=== PATIENT | male | born 1975 ===

== ENCOUNTER 2017-01-11 15:32 | Observation (INO) | payer OTHER ==
[2017-01-11 15:33] VITALS: BMI 38.6
[2017-01-11] MEDS ORDERED: DiphenhydrAMINE 50 mg/ml Inj IVP STA (16:04)
[2017-01-11] MEDS ORDERED: Sodium Chloride 0.9% 1,000 ML IV STA (16:04)
--- NOTE | 2017-01-11 16:16 | ED PDOC ---
Arrival/HPI <Rock Huston - Last Filed: 01/12/17 00:32> - General Historian: Patient <Nina Brooks PA-C - Last Filed: 01/12/17 01:46> - General Chief Complaint: Abnormal Skin Integrity Time Seen by Provider: 01/11/17 15:54 - History of Present Illness Narrative History of Present Illness (Text): 01/11/17 16:12 Patient with no past medical history, reports 1 day of feeling generalized fatigue with body aches started a few hours prior to arrival. Patient also reports of an itchy red rash described as a burning sensation to the posterior aspect of his neck and back which she noticed one hour prior to arrival. Patient states that he does not know the cause of the rash, denies any new medications, new food intake, changing his soaps or lotions. Otherwise: (+) cough today, (+) mild headache, (-) sore throat, (-) URI symptoms, (-) SOB, (-) chest pain, (-) N/V/D, (-) abdominal pain, (-) flank pain, (-) urinary symptoms , (-) recent travel, (-) sick contacts. Patient adds that one month ago he had flulike symptoms, was seen and evaluated by a clinician, who prescribed him cough medication and an inhaler, states they took the medications for 1 week and felt better afterwards and since then has been well. (Nina Brooks PA-C) Past Medical History - Provider Review Nursing Documentation Reviewed: Yes - Past History Past History: No Previous - Infectious Disease Hx of Infectious Diseases: None - Tetanus Immunization Tetanus Immunization: Unknown - Past Medical History Past Medical History: No Previous - Cardiac Hx Cardiac Disorders: No Hx Angina: No Hx Cardiac Arrhythmia: No Hx Circulatory Problems: No Hx Congestive Heart Failure: No Hx Hypertension: No - Pulmonary Hx Sleep Apnea: Yes (2013 cpap does no use now) - Neurological Hx Neurological Disorder: No - HEENT Hx HEENT Disorder: No - Renal Hx Renal Disorder: No - Endocrine/Metabolic Hx Diabetes Mellitus Type 1: No Hx Diabetes Mellitus Type 2: No - Hematological/Oncological Hx Blood Disorders: No - Integumentary Hx Dermatological Disorder: No - Musculoskeletal/Rheumatological Hx Musculoskeletal Disorders: No Hx Falls: No - Gastrointestinal Hx Gastrointestinal Disorders: No - Genitourinary/Gynecological Hx Genitourinary Disorders: No - Psychiatric Hx Psychophysiologic Disorder: No Hx Depression: No Hx Emotional Abuse: No Hx Physical Abuse: No Hx Substance Use: No - Past Surgical History Past Surgical History: No Previous - Anesthesia Hx Anesthesia: No - Suicidal Assessment Feels Threatened In Home Enviroment: No <Nina Brooks PA-C - Last Filed: 01/12/17 01:46> Family/Social History - Physician Review Nursing Documentation Reviewed: Yes Family/Social History: No Known Family HX Smoking Status: Never Smoked Hx Alcohol Use: No Hx Substance Use: No Hx Substance Use Treatment: No <Nina Brooks PA-C - Last Filed: 01/12/17 01:46> Allergies/Home Meds <Rock Huston - Last Filed: 01/12/17 00:32> <Nina Brooks PA-C - Last Filed: 01/12/17 01:46> Allergies/Adverse Reactions: Allergies No Known Allergies Allergy (Verified 04/14/12 15:09) Home Medications: Home Meds Medication Instructions Recorded Confirmed Valsartan/Hydrochlorothiazide 1 each PO DAILY 01/11/17 01/11/17 [Diovan Hct 160-12.5 mg Tab] Review of Systems - Review of Systems Constitutional: Normal, Fatigue. absent: Weight Change, Fevers, Night Sweats ENT: Normal. absent: Hearing Changes, Tinnitus, TMJ Pain, Voice Changes, Sore Throat Respiratory: Normal. absent: SOB, Cough Cardiovascular: Normal. absent: Chest Pain, Palpitations Gastrointestinal: Normal. absent: Abdominal Pain, Stool Changes, Nausea, Vomiting Musculoskeletal: Normal, Myalgias (bodyaches). absent: Arthralgias, Back Pain, Neck Pain Skin: Normal, Rash (to the back). absent: Pruritis, Skin Lesions <Nina Brooks PA-C - Last Filed: 01/12/17 01:46> Physical Exam <Rock Huston - Last Filed: 01/12/17 00:32> <Nina Brooks PA-C - Last Filed: 01/12/17 01:46> - Physical Exam Narrative Physical Exam (Text): 01/11/17 16:17 GENERAL APPEARANCE: Patient is awake, alert, oriented x 3, in mild distress. SKIN: Warm, dry; (-) cyanosis, (+) non-tender erythematous papular rash to the neck, back, chest, abdomen and upper arms. (-) Decubitus Ulcer EYES: (-) conjunctival pallor, (-) scleral icterus, (-) conjunctival hemorrhage. ENMT: Mucous membranes dry. TMs: (-) erythema. Airway patent: (-) stridor. Pharynx: (-) erythema, (-) exudate. (-) Lesions in the oral mucosa. NECK: (-) tenderness, (-) stiffness, (-) meningismus, (-) lymphadenopathy. CHEST AND RESPIRATORY: (-) accessory muscle use. Lungs: (-) rales, (-) rhonchi, (-) wheezes, (-) rub; breath sounds equal bilaterally. HEART AND CARDIOVASCULAR: (-) irregularity; (-) murmur, (-) gallop, (-) rub. ABDOMEN AND GI: Soft; (-) tenderness, (-) guarding; (-) organomegaly; (-) mass ; (-) CVA tenderness. EXTREMITIES: (-) deformity; (-) cellulitis, (-) lymphangitis; (-) subungual hemorrhage; (-) edema. NEURO AND PSYCH: Mental status as above; (-) focal findings. 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 Plan: -- Labs -- IV fluids -- Urinalysis -- Rapid flu -- CXR -- Benadryl / Toradol -- Reassess and disposition 01/11/17 17:40 CXR : NAD, as read by PA (Todd KAUR,Nina Avalos) - RAD Interpretation Narrative RAD Interpretations (Text): EXAM: CT Neck With Intravenous Contrast COMPARISON: No relevant prior studies available. FINDINGS: Nasopharynx: Unremarkable. Oropharynx: Unremarkable. No significant tonsillar enlargement. No peritonsillar abscess. Hypopharynx: Unremarkable. Larynx: Unremarkable. Normal epiglottis. Trachea: Unremarkable. Retropharyngeal space: Unremarkable. Submandibular/parotid glands: Unremarkable. Glands are normal in size. Thyroid: Unremarkable. No enlarged or calcified nodules. Bones/joints: No acute fracture. Soft tissues: Unremarkable. Vasculature: No acute findings. Lymph nodes: Borderline enlarged lymph nodes. Lung apices: Unremarkable as visualized. IMPRESSION: No acute findings. EXAM: CT Abdomen and Pelvis With Intravenous Contrast FINDINGS: Lower thorax: No acute findings. ABDOMEN: Liver: The liver is heterogenous in appearance. Suggestive of fatty infiltration. Gallbladder and bile ducts: Unremarkable. No calcified stones. No ductal dilation. Pancreas: Unremarkable. No mass. No ductal dilation. Spleen: Unremarkable. No splenomegaly. Adrenals: Unremarkable. No mass. Kidneys and ureters: Unremarkable. No solid mass. No hydronephrosis. Stomach and bowel: Bowel evaluation is limited due to lack of distention. No mucosal thickening. Appendix: No findings to suggest acute appendicitis. PELVIS: Bladder: Unremarkable. No mass. Reproductive: Unremarkable as visualized. ABDOMEN and PELVIS: Intraperitoneal space: Unremarkable. No free air. No significant fluid collection. Bones/joints: No acute fracture. No dislocation. Soft tissues: Unremarkable. Vasculature: Unremarkable. No abdominal aortic aneurysm. Lymph nodes: Unremarkable. No enlarged lymph nodes. IMPRESSION: No acute findings. (Rock Huston) Radiology Orders: 01/11/17 16:04 CHEST TWO VIEWS (PA/LAT) [RAD] Stat - Medication Orders Current Medication Orders: Sodium Chloride (Sodium Chloride 0.9%) 1,000 mls @ 200 mls/hr IV .Q5H SERAFIN Last Admin: 01/11/17 21:37 Dose: 200 mls/hr Discontinued Medications Acetaminophen (Tylenol 325mg Tab) 975 mg PO STAT STA Stop: 01/11/17 21:06 Last Admin: 01/11/17 21:32 Dose: 975 mg Diphenhydramine HCl (Benadryl) 25 mg IVP STAT STA Stop: 01/11/17 16:05 Last Admin: 01/11/17 16:54 Dose: 25 mg Sodium Chloride (Sodium Chloride 0.9%) 1,000 mls @ 1,000 mls/hr IV .Q1H STA Stop: 01/11/17 17:03 Last Admin: 01/11/17 16:53 Dose: 1,000 mls/hr Iohexol (Omnipaque 350 150 Ml) Confirm Administered Dose 150 ml .ROUTE .STK-MED ONE Stop: 01/11/17 22:48 Ketorolac Tromethamine (Toradol) 30 mg IVP STAT STA Stop: 01/11/17 16:05 Last Admin: 01/11/17 16:54 Dose: 30 mg Methylprednisolone (Solu-Medrol) 125 mg IV STAT STA Stop: 01/11/17 18:45 ED OBSERVATION <Rock Huston - Last Filed: 01/12/17 00:32> Date of observation admission: 01/11/17 Time of observation admission: 16:05 <Nina Brooks PA-C - Last Filed: 01/12/17 01:46> - Observation admission statement Patient is being placed in observation because:: To monitor patient's symptoms and response to treatment. (Nina Brooks PA-C) - Goals of Observation Goals of observation are:: To observe and re-asses the the patient's symptoms. (Nina Brooks PA-C) - Progress Note Progress Note: 01/12/17 21:30 On reevaluation, CBC is normal, CMP : LFTs are mildly elevated. Rapid flu (-). Lipase ordered. Patient developed a fever of 101 here in the emergency room, given Tylenol by mouth. A second liter of normal saline ordered for IV hydration. Patient seen and evaluated by Dr. Huston, plan will be to order CT neck and A/P to r/o any acute pathology. 22:30 VS: T 98 P 64 BP 134/77 98%RA. 01/12/17 23:30 CT results of the neck and abdomen/pelvis are within normal limits. Lipase normal. Blood cultures sent. UA still pending. On reevaluation, patient remains awake, alert, oriented 3, in no acute distress. Patient appears well not toxic appearing. VS normal, patient is afebrile. On exam, neck is supple, mucous membranes moist, lungs are clear to auscultation, cardiac regular rate and rhythm, abdomen still soft with no tenderness. 01/12/17 01:00 Case d/w Dr. Tejeda, agrees with current plan of care and all treatment. Recommends outpatient follow up in the office in the AM, recommends no further treatment at this time or antibiotics. Patient advised to see his PMD in the morning for reevaluation and follow-up. Based on history, exam and diagnostic results plan will be for outpatient follow -up with PMD in the morning. Advised bedrest, drink plenty of fluids, over-the- counter Motrin for fever and body aches. Patient states he fully agrees with and understands discharge instructions. States that he agrees with the plan and disposition. Verbalized and repeated discharge instructions and plan. I have given the patient opportunity to ask any additional questions. Follow up with primary care physician in the morning without fail. Return to the emergency room at any time for any new or worsening symptoms. (Nina Brooks PA-C) - PA / AIRLINE TICKET AGENT / Resident Statement MD/DO has reviewed & agrees with the documentation as recorded. <Nina Brooks PA-C - Last Filed: 01/12/17 01:46> Disposition/Present on Arrival <Rock Huston - Last Filed: 01/12/17 00:32> - Present on Arrival Any Indicators Present on Arrival: No History of DVT/PE: No History of Uncontrolled Diabetes: No Urinary Catheter: No History of Decub. Ulcer: No History Surgical Site Infection Following: None - Disposition Have Diagnosis and Disposition been Completed?: Yes Disposition Time: 16:05 (Pt placed in ED obs) Patient Plan: Discharge <Nina Brooks PA-C - Last Filed: 01/12/17 01:46> - Disposition Diagnosis: Fever, Dehydration, Viral illness, Rash Disposition: HOME/ ROUTINE Patient Problems: Current Active Problems Problem Status Onset Dehydration Acute Fever Acute Rash Acute Viral illness Acute Condition: IMPROVED
--- NOTE | 2017-01-11 16:45 | RAD ---
HISTORY: pain COMPARISON: No prior. TECHNIQUE: Chest PA and lateral FINDINGS: LUNGS: No active pulmonary disease. PLEURA: No significant pleural effusion identified. No pneumothorax apparent. CARDIOVASCULAR: Normal. OSSEOUS STRUCTURES: No significant abnormalities. VISUALIZED UPPER ABDOMEN: Normal. OTHER FINDINGS: None. IMPRESSION: No active disease.
[2017-01-11 17:16] LABS: ADD MANUAL DIFF? NO
[2017-01-11 17:29] LABS: ALKALINE PHOSPHATASE 104 U/L (38-133); ALT/SGPT 147 U/L (7-56); AST/SGOT 169 U/L (15-59); BLOOD UREA NITROGEN 15 mg/dL (7-21); CARBON DIOXIDE 30 mmol/L (21-33); CHLORIDE 96 mmol/L (98-107); GFR AFRICAN-AMERICAN > 60; GLUCOSE,RANDOM 102 mg/dL (70-110); SODIUM 138 mmol/L (132-148); TOTAL PROTEIN 8.1 g/dL (5.8-8.3)
[2017-01-11 17:30] LABS: POTASSIUM 3.7 mmol/L (3.6-5.0)
[2017-01-11 17:47] LABS: BASO # 0.01 K/mm3 (0.0-2.0); BASO % 0.1 % (0.0-3.0); EOS # 0.1 (0.0-0.7); EOS % 1.1 % (1.5-5.0); GRAN # 7.63 (1.4-6.5); GRAN % 78.5 % (50.0-68.0); HEMATOCRIT 40.5 % (42.0-52.0); LYMPH % 10.4 % (22.0-35.0); MEAN CELL VOLUME 89.4 fL (80.0-105.0); MEAN CORPUSCULAR HEMOGLOBIN 30.9 pg (25.0-35.0); MEAN CORPUSCULAR HGB CONC 34.6 g/dl (31.0-37.0); MEAN PLATELET VOLUME 9.4 fl (7.0-11.0); MONO % 9.9 % (1.0-6.0); PLATELET COUNT 206 10^3/uL (120.0-450.0); RED CELL DISTRIBUTION WIDTH 13.8 % (11.5-14.5); WHITE BLOOD COUNT 9.7 10^3/ul (4.5-11.0)
[2017-01-11 20:49] VITALS: RESP 16
[2017-01-11] MEDS ORDERED: Sodium Chloride 0.9% 1,000 ML IV SCH (21:30)
[2017-01-11 22:28] VITALS: BP 134/77; TEMP 98.7; O2SAT 98
[2017-01-12 01:28] LABS: PH,URINE 6.5 (4.7-8.0); URINE BILIRUBIN NEGATIVE (NEGATIVE); URINE BLOOD TRACE-LYSED (NEGATIVE); URINE GLUCOSE (UA) NEGATIVE (NEGATIVE); URINE KETONE TRACE mg/dL (NEGATIVE); URINE LEUKOCYTE ESTERASE NEGATIVE Leu/uL (NEGATIVE); URINE PROTEIN NEGATIVE mg/dL (<30 mg/dL); URINE UROBILINOGEN 0.2 E.U./dL (<1 E.U./dL)
[2017-01-12 01:31] LABS: URINE APPEARANCE CLEAR (CLEAR); URINE COLOR YELLOW (YELLOW)
[2017-01-12 01:49] VITALS: PULSE 75
[2017-01-12 01:50] LABS: URINE EPITHELIAL CELLS 0 - 2 /hpf (0-5); URINE RBC 0 - 2 /hpf (0-2); URINE WBC 0 - 2 /hpf (0-6)
--- NOTE | 2017-01-12 11:25 | CT ---
PROCEDURE: CT Abdomen and Pelvis without intravenous contrast HISTORY: elevated LFTs, fever COMPARISON: None. TECHNIQUE: Multiple contiguous axial images were performed through the abdomen and pelvis with intravenous contrast. Subsequently, sagittal coronal reformatted images were obtained. 73 cc of Omni 350 intravenous contrast was administered. Radiation dose: Total exam DLP = 1410 mGy-cm. This CT exam was performed using one or more of the following dose reduction techniques: Automated exposure control, adjustment of the mA and/or kV according to patient size, and/or use of iterative reconstruction technique. FINDINGS: LOWER THORAX: Unremarkable. LIVER: Diffuse decreased attenuation of the hepatic parenchyma suggestive of fatty infiltration. GALLBLADDER AND BILE DUCTS: Unremarkable. PANCREAS: Unremarkable. No gross lesion or ductal dilatation. SPLEEN: Unremarkable. ADRENALS: Unremarkable. No mass. KIDNEYS AND URETERS: Unremarkable. No hydronephrosis. No solid mass. VASCULATURE: Unremarkable. No aortic aneurysm. BOWEL: Bowel evaluation is limited due to lack of distention. No mucosal thickening. APPENDIX: No findings to suggest acute appendicitis. PERITONEUM: Unremarkable. No free fluid. No free air. LYMPH NODES: Unremarkable. No enlarged lymph nodes. BLADDER: Unremarkable. REPRODUCTIVE: Unremarkable. BONES: No acute fracture. OTHER FINDINGS: None. IMPRESSION: Negative acute. Diffuse decreased attenuation throughout the hepatic parenchyma suggestive for fatty infiltration. These findings were preliminarily reported at 11:51 a.m. on 01/11/[address] Ryann Bui from [facility].
--- NOTE | 2017-01-12 12:24 | CT ---
PROCEDURE: CT NECK WITH CONTRAST HISTORY: fever, neck pain, r/o abscess COMPARISON: None TECHNIQUE: CT of the neck with intravenous contrast. Coronal and sagittal reformats generated. Intravenous contrast dose: 150 cc of Omni 300 Radiation dose: DLP 424 mGy-cm This CT exam was performed using one or more of the following dose reduction techniques: Automated exposure control, adjustment of the mA and/or kV according to patient size, and/or use of iterative reconstruction technique. FINDINGS: NASOPHARYNX: Unremarkable. SUPRAHYOID NECK: Unremarkable oropharynx, oral cavity, parapharyngeal space and retropharyngeal space. INFRAHYOID NECK: Unremarkable larynx, hypopharynx, and supraglottic space. Vocal cords intact. MASS: None. GLANDS: Parotid and submandibular glands unremarkable. Normal size thyroid gland, without nodule. LYMPH NODES: Several enlarged lymph nodes are seen on the left near the angle of the mandible. The largest node measures 15 mm. These could represent reactive nodes. CERVICAL SPINE: No fracture or focal lesion. VASCULAR STRUCTURES: Unremarkable. OTHER FINDINGS: None. IMPRESSION: Several enlarged cervical lymph nodes adjacent to the angle of the mandible on the left. No evidence of abscess. No tonsillar or pharyngeal swelling
== END 2017-01-12 01:49 | disposition home or self-care (01) ==
LOC: ED 15:32 → EROBSV 16:05
PROVIDERS: ADMIT Emergency Medicine; ATTEND Emergency Medicine
DX: E86.0 Dehydration (principal); B34.9 Viral infection, unspecified; R21 Rash and other nonspecific skin eruption
CPT/HCPCS: 36415; 70491; 71020; 74177; 80053; 81001; 83690; 85025; 87040; 87804; 96361; 96374; 96375; 99284; G0378; J1200; J1885; J7040; Q9967

== ENCOUNTER 2017-11-15 14:51 | Emergency (ER) | payer OTHER ==
[2017-11-15 14:51] VITALS: BMI 38.6
[2017-11-15 15:13] VITALS: TEMP 98.7
--- NOTE | 2017-11-15 15:37 | ED PDOC ---
Arrival/HPI - General Chief Complaint: Abdominal Pain Time Seen by Provider: 11/15/17 15:30 - History of Present Illness Narrative History of Present Illness (Text): 11/15/17 15:32 Pt is a 41 yo M with PMH of HTN presents to ED with 1 day history of RLQ abdominal pain. Pt states that pain started while at rest yesterday and he described it as stabbing. Pt denies any radiation. Pt denies flank pain. Pt also admits to some cold sweats, nausea, but no vomiting. Pt denied CP, SOB, fever, chills, fever, changes in BM, dysuria, RIVAS, or dizziness. PMD: Stefano Past Medical History - Provider Review Nursing Documentation Reviewed: Yes - Past History Past History: No Previous - Infectious Disease Hx of Infectious Diseases: None - Tetanus Immunization Tetanus Immunization: Unknown - Past Medical History Past Medical History: No Previous - Cardiac Hx Cardiac Disorders: Yes Hx Hypertension: Yes - Pulmonary Hx Respiratory Disorders: Yes Hx Sleep Apnea: Yes - Neurological Hx Neurological Disorder: No - HEENT Hx HEENT Disorder: No - Renal Hx Renal Disorder: No - Endocrine/Metabolic Hx Endocrine Disorders: No - Hematological/Oncological Hx Blood Disorders: No - Integumentary Hx Dermatological Disorder: No - Musculoskeletal/Rheumatological Hx Musculoskeletal Disorders: No - Gastrointestinal Hx Gastrointestinal Disorders: No - Genitourinary/Gynecological Hx Genitourinary Disorders: No - Psychiatric Hx Psychophysiologic Disorder: No Hx Depression: No Hx Emotional Abuse: No Hx Physical Abuse: No Hx Substance Use: No - Past Surgical History Past Surgical History: No Previous - Anesthesia Hx Anesthesia: No - Suicidal Assessment Feels Threatened In Home Enviroment: No Family/Social History - Physician Review Nursing Documentation Reviewed: Yes Family/Social History: Other (non-contributory) Smoking Status: Never Smoked Hx Alcohol Use: No Hx Substance Use: No Hx Substance Use Treatment: No Allergies/Home Meds Allergies/Adverse Reactions: Allergies No Known Allergies Allergy (Verified 11/15/17 15:09) Home Medications: Home Meds Medication Instructions Recorded Confirmed Valsartan/Hydrochlorothiazide 1 each PO DAILY 01/11/17 11/15/17 [Diovan Hct 160-12.5 mg Tab] Review of Systems - Physician Review All systems were reviewed & negative as marked: Yes - Review of Systems Constitutional: Normal Eyes: Normal ENT: Normal Respiratory: Normal Cardiovascular: Normal Gastrointestinal: Abdominal Pain, Nausea. absent: Stool Changes, Constipation, Diarrhea, Vomiting Genitourinary Male: Normal Musculoskeletal: Normal Skin: Normal Neurological: Normal Endocrine: Normal Hemo/Lymphatic: Normal Psychiatric: Normal Physical Exam Vital Signs Reviewed: Yes Vital Signs Temp Pulse Resp BP Pulse Ox 11/15/17 17:46 68 18 114/79 97 11/15/17 15:09 98.7 F 69 16 112/74 96 Temperature: Afebrile Blood Pressure: Normal Pulse: Regular Respiratory Rate: Normal Appearance: Positive for: Uncomfortable Pain Distress: Moderate Mental Status: Positive for: Alert and Oriented X 3 - Systems Exam Head: Present: Atraumatic, Normocephalic Extroacular Muscles: Present: EOMI Conjunctiva: Present: Normal Mouth: Present: Moist Mucous Membranes Respiratory/Chest: Present: Clear to Auscultation. No: Respiratory Distress, Accessory Muscle Use, Wheezes, Rales, Rhonchi Cardiovascular: Present: Regular Rate and Rhythm, Normal S1, S2. No: Murmurs, Rub, Gallop Abdomen: Present: Tenderness (RLQ), Rebound, McBurney's Point Tender, Other ( positive psoas sign). No: Distention, Peritoneal Signs, Guarding Back: Present: Normal Inspection Upper Extremity: Present: Normal Inspection Lower Extremity: Present: Normal Inspection Neurological: Present: GCS=15 Skin: Present: Warm, Dry, Normal Color Psychiatric: Present: Alert, Oriented x 3 Medical Decision Making ED Course and Treatment: 11/15/17 15:41 Assessment: 41 yo M presents to ED with RLQ abdominal pain. Will r/o acute appendicitis. Plan: - Labs - UA - Abd/pelvis CT with IV contrast Labs unremarkable. UA negative. 11/15/17 19:[address] Mota. Patient awaiting CT scan. - Lab Interpretations Lab Results: 11/15/17 15:45 11/15/17 15:45 Lab Results 11/15/17 17:21: Urine Color Yellow, Urine Appearance Clear, Urine pH 8.5, Ur Specific [place] 1.015, Urine Protein Negative, Urine Glucose (UA) Negative, Urine Ketones Negative, Urine Blood Negative, Urine Nitrate Negative, Urine Bilirubin Negative, Urine Urobilinogen 0.2, Ur Leukocyte Esterase Negative 11/15/17 15:45: Sodium 142, Potassium 4.3, Chloride 106, Carbon Dioxide 30, Anion Gap 11, BUN 9, Creatinine 0.9, Est GFR ( Amer) > 60, Est GFR (Non- Af Amer) > 60, Random Glucose 95, Calcium 9.3, Total Bilirubin 0.9, AST 42, ALT 46, Alkaline Phosphatase 71, Total Protein 7.6, Albumin 4.0, Globulin 3.6, Albumin/Globulin Ratio 1.1 11/15/17 15:45: PT 12.5, INR 1.09 H, APTT 31.0 11/15/17 15:45: WBC 7.9, RBC 4.59, Hgb 13.9 L, Hct 41.9 L, MCV 91.3, MCH 30.3, MCHC 33.2, RDW 13.7, Plt Count 180, MPV 8.9, Gran % 51.7, Lymph % (Auto) 37.5 H , [place] % (Auto) 9.7 H, Eos % (Auto) 0.8 L, Baso % (Auto) 0.3, Gran # 4.07, Lymph # (Auto) 3.0, [place] # (Auto) 0.8 H, Eos # (Auto) 0.1, Baso # (Auto) 0.02 - RAD Interpretation Radiology Orders: 11/15/17 18:09 ABD & PELVIS IV CONTRAST ONLY [CT] Stat - Medication Orders Current Medication Orders: Sodium Chloride (Sodium Chloride 0.9%) 1,000 mls @ 100 mls/hr IV .Q10H SERAFIN Last Admin: 11/15/17 15:51 Dose: 100 mls/hr eMAR Start Stop Document 11/15/17 15:51 SE (Rec: 11/15/17 15:51 SE [id number]) Intravenous Solution Start Date 11/15/17 Start Time 15:51 Disposition/Present on Arrival - Present on Arrival Any Indicators Present on Arrival: Yes History of DVT/PE: No History of Uncontrolled Diabetes: No Urinary Catheter: No History of Decub. Ulcer: No History Surgical Site Infection Following: None - Disposition Have Diagnosis and Disposition been Completed?: No Diagnosis: Abdominal pain Disposition Time: 19:04 Condition: STABLE Referrals: Rivera Agarwal MD [Primary Care Provider] - Follow up with primary Forms: [employer] (Swedish)
[2017-11-15] MEDS ORDERED: Sodium Chloride 0.9% 1,000 ML IV SCH (16:00)
[2017-11-15 16:03] LABS: BASO # 0.02 K/mm3 (0.0-2.0); BASO % 0.3 % (0.0-3.0); EOS # 0.1 (0.0-0.7); EOS % 0.8 % (1.5-5.0); GRAN # 4.07 (1.4-6.5); GRAN % 51.7 % (50.0-68.0); HEMOGLOBIN 13.9 g/dL (14.0-18.0); LYMPH % 37.5 % (22.0-35.0); MEAN CELL VOLUME 91.3 fl (80.0-105.0); MEAN CORPUSCULAR HEMOGLOBIN 30.3 pg (25.0-35.0); MEAN CORPUSCULAR HGB CONC 33.2 g/dl (31.0-37.0); MEAN PLATELET VOLUME 8.9 fl (7.0-11.0); MONO # 0.8 (0.1-0.6); MONO % 9.7 % (1.0-6.0); RBC 4.59 10^6/uL (3.5-6.1); RED CELL DISTRIBUTION WIDTH 13.7 % (11.5-14.5); WHITE BLOOD COUNT 7.9 10^3/ul (4.5-11.0)
[2017-11-15 16:11] LABS: INR 1.09 (0.93-1.08); PROTHROMBIN TIME 12.5 SECONDS (9.4-12.5)
[2017-11-15 16:23] LABS: ALB/GLOB RATIO 1.1 (1.1-1.8); ALT/SGPT 46 U/L (7-56); AST/SGOT 42 U/L (17-59); BLOOD UREA NITROGEN 9 mg/dL (7-21); CALCIUM 9.3 mg/dL (8.4-10.5); GFR AFRICAN-AMERICAN > 60; GFR NON-AFRICAN AMERICAN > 60
[2017-11-15] MEDS ORDERED: Iohexol 350 MG/100 ML VIAL ONE (16:53)
[2017-11-15 17:47] VITALS: RESP 18
[2017-11-15 18:04] LABS: PH,URINE 8.5 (4.7-8.0); URINE BILIRUBIN NEGATIVE (NEGATIVE); URINE BLOOD NEGATIVE (NEGATIVE); URINE GLUCOSE (UA) NEGATIVE (NEGATIVE); URINE LEUKOCYTE ESTERASE NEGATIVE Leu/uL (NEGATIVE); URINE NITRATE NEGATIVE (NEGATIVE); URINE PROTEIN NEGATIVE mg/dL (<30 mg/dL); URINE UROBILINOGEN 0.2 E.U./dL (<1 E.U./dL)
[2017-11-15 18:05] LABS: URINE APPEARANCE CLEAR (CLEAR); URINE COLOR YELLOW (YELLOW)
--- NOTE | 2017-11-15 19:31 | ED PDOC ---
Physical Exam Vital Signs Temp Pulse Resp BP Pulse Ox 11/15/17 23:00 88 18 118/82 100 11/15/17 17:46 68 18 114/79 97 11/15/17 15:09 98.7 F 69 16 112/74 96 Medical Decision Making ED Course and Treatment: 11/15/17 19:00 Patient signed out to me by Dr. Blood and vice president of human resources Dr. Fuchs. Patient awaiting CT scan study of abdomen and pelvis. Patient has a history of RLQ abdominal pain for one day. Patient currently resting comfortably awaiting study. 11/15/17 23:02 CT Abdomen and Pelvis shows: Lower thorax: Minimal atelectasis/scarring. ABDOMEN: Liver: Fatty infiltration. Gallbladder and bile ducts: No calcified stones. No ductal dilation. Pancreas: No ductal dilation. No mass. Spleen: No splenomegaly. Adrenals: No mass. Kidneys and ureters: No mass. No hydronephrosis Stomach and bowel: Stool formation within distal small bowel loops may suggest delayed transit. No definite mural thickening. No obstruction. Small fat containing lesion with hyperdense rim and minimal adjacent stranding along border of ascending colon. Appendix: Normal caliber. No inflammation. PELVIS: Bladder: Unremarkable. Reproductive: Unremarkable as visualized. ABDOMEN and PELVIS: Intraperitoneal space: No significant fluid collection. No free air. Bones/joints: Chronic L5 pars defects. No acute fracture. Soft tissues: Tiny umbilical hernia containing fat. Vasculature: Unremarkable. No aneurysm. Lymph nodes: No pathologically enlarged lymph nodes. IMPRESSION: 1. Epiploic appendagitis of ascending colon. 2. Incidental/non-acute findings are described above. 11/16/17 00:11 Pt still with some mild RLQ pain after CT. Spoke with regional vice president surgical sales microbiology quality control technician , notified to evaluate pt. 11/16/17 01:17 Spoke with regional vice president surgical sales, who evaluated pt.Concurs pt. symptoms c/w epiploic appendagitis No surgical intervention needed.Will require rx. with NSAIDS. Pt stable for d/c home.Outpatient follow up. - Lab Interpretations Lab Results: 11/15/17 15:45 11/15/17 15:45 Lab Results 11/15/17 17:21: Urine Color Yellow, Urine Appearance Clear, Urine pH 8.5, Ur Specific [place] 1.015, Urine Protein Negative, Urine Glucose (UA) Negative, Urine Ketones Negative, Urine Blood Negative, Urine Nitrate Negative, Urine Bilirubin Negative, Urine Urobilinogen 0.2, Ur Leukocyte Esterase Negative 11/15/17 15:45: Sodium 142, Potassium 4.3, Chloride 106, Carbon Dioxide 30, Anion Gap 11, BUN 9, Creatinine 0.9, Est GFR ( Amer) > 60, Est GFR (Non- Af Amer) > 60, Random Glucose 95, Calcium 9.3, Total Bilirubin 0.9, AST 42, ALT 46, Alkaline Phosphatase 71, Total Protein 7.6, Albumin 4.0, Globulin 3.6, Albumin/Globulin Ratio 1.1 11/15/17 15:45: PT 12.5, INR 1.09 H, APTT 31.0 11/15/17 15:45: WBC 7.9, RBC 4.59, Hgb 13.9 L, Hct 41.9 L, MCV 91.3, MCH 30.3, MCHC 33.2, RDW 13.7, Plt Count 180, MPV 8.9, Gran % 51.7, Lymph % (Auto) 37.5 H , [place] % (Auto) 9.7 H, Eos % (Auto) 0.8 L, Baso % (Auto) 0.3, Gran # 4.07, Lymph # (Auto) 3.0, [place] # (Auto) 0.8 H, Eos # (Auto) 0.1, Baso # (Auto) 0.02 - RAD Interpretation Radiology Orders: 11/15/17 18:09 ABD & PELVIS IV CONTRAST ONLY [CT] Stat 11/15/17 20:16 ABD & PELVIS IV CONTRAST ONLY [CT] Stat Retail Support Associate: Radiologist - Medication Orders Current Medication Orders: Sodium Chloride (Sodium Chloride 0.9%) 1,000 mls @ 100 mls/hr IV .Q10H SERAFIN Last Admin: 11/15/17 15:51 Dose: 100 mls/hr eMAR Start Stop Document 11/15/17 15:51 SE (Rec: 11/15/17 15:51 SE [id number]) Intravenous Solution Start Date 11/15/17 Start Time 15:51 Discontinued Medications Ketorolac Tromethamine (Toradol) 30 mg IVP ONCE ONE Stop: 11/16/17 01:16 - Scribe Statement The provider has reviewed the documentation as recorded by the Ap Collins Provider Scribe Attestation: All medical record entries made by the Scribe were at my direction and personally dictated by me. I have reviewed the chart and agree that the record accurately reflects my personal performance of the history, physical exam, medical decision making, and the department course for this patient. I have also personally directed, reviewed, and agree with the discharge instructions and disposition. Disposition/Present on Arrival - Present on Arrival Any Indicators Present on Arrival: Yes History of DVT/PE: No History of Uncontrolled Diabetes: No Urinary Catheter: No History of Decub. Ulcer: No History Surgical Site Infection Following: None - Disposition Have Diagnosis and Disposition been Completed?: Yes Diagnosis: Abdominal pain, Epiploic appendagitis Disposition: HOME/ ROUTINE Disposition Time: :26 Patient Plan: Discharge Condition: STABLE Discharge Instructions (ExitCare): Acute Abdomen (Belly Pain), Adult (DC) Additional Instructions: Take meds as prescribed/follow up with the surgeon this week .Any worsening symptoms return to the emergency room Prescriptions: Ibuprofen [Motrin Tab] 800 mg PO TID PRN #18 tab PRN Reason: Pain, Moderate (4-7) Referrals: Roro Moe MD [Staff Provider] - Rivera Agarwal MD [Primary Care Provider] - Follow up with primary Forms: [place] (British)
--- NOTE | 2017-11-15 21:52 | CT ---
EXAM: CT Abdomen and Pelvis With Intravenous Contrast CLINICAL HISTORY: 41 years old, male; Pain; Abdominal pain; Acute; Additional info: Rlq abdominal pain TECHNIQUE: Axial computed tomography images of the abdomen and pelvis with intravenous contrast. All CT scans at this facility use one or more dose reduction techniques, viz.: automated exposure control; ma/kV adjustment per patient size (including targeted exams where dose is matched to indication; i.e. head); or iterative reconstruction technique. Coronal and sagittal reformatted images were created and reviewed. CONTRAST: 100 mL of OMNI 350 administered intravenously. COMPARISON: CT - ABD PELVIS IV CONTRAST ONLY 2017-01-11 23:23 FINDINGS: Lower thorax: Minimal atelectasis/scarring. ABDOMEN: Liver: Fatty infiltration. Gallbladder and bile ducts: No calcified stones. No ductal dilation. Pancreas: No ductal dilation. No mass. Spleen: No splenomegaly. Adrenals: No mass. Kidneys and ureters: No mass. No hydronephrosis. Stomach and bowel: No definite mural thickening. No obstruction. Appendix: Normal caliber. No inflammation. PELVIS: Bladder: Unremarkable. Reproductive: Unremarkable as visualized. ABDOMEN and PELVIS: Intraperitoneal space: No significant fluid collection. No free air. Bones/joints: Chronic L5 pars defects. No acute fracture. Soft tissues: Tiny umbilical hernia containing fat. Vasculature: Unremarkable. No aneurysm. Lymph nodes: No pathologically enlarged lymph nodes. IMPRESSION: 1. No definite acute intraabdominal abnormality. 2. Incidental/non-acute findings are described above.
--- NOTE | 2017-11-16 01:15 | CP.PCM.CON ---
History of Present Illness - History of Present Illness History of Present Illness: Surgery consult note. Dr. Moe 41yo M with PMHx of HTN here for evaluation of abdominal pain. Pain is located in the RLQ, described as sharp, does not radiate. Started yesterday, not associated with food intake. Never has had similar complaints in the past. Denies any N/V/D. No Constipation. No F/C. No CP/SOB. Denies any bowel changes. No Urinary changes. No flank pain. PMD: Dr. Agarwal PMHx: HTN PSHx: Denies Social Hx: Deines Tobacco, Denies ETOH. Denies any illicit drugs Family Hx: Non-contributory NKDA Review of Systems - Review of Systems All systems: reviewed and no additional remarkable complaints except - Constitutional Constitutional: absent: Chills, Fever - Cardiovascular Cardiovascular: absent: Chest Pain, Dyspnea - Respiratory Respiratory: absent: Cough, Dyspnea, Wheezing - Gastrointestinal Gastrointestinal: Abdominal Pain. absent: Constipation, Diarrhea, Hematochezia , Loose Stools, Melena, Nausea, Vomiting - Genitourinary Genitourinary: absent: Dysuria - Neurological Neurological: absent: Dizziness, Focal Weakness Past Patient History - Infectious Disease Hx of Infectious Diseases: None - Tetanus Immunizations Tetanus Immunization: Unknown - Past Social History Smoking Status: Never Smoked - CARDIAC Hx Cardiac Disorders: Yes Hx Hypertension: Yes - PULMONARY Hx Respiratory Disorders: Yes Hx Sleep Apnea: Yes - NEUROLOGICAL Hx Neurological Disorder: No - HEENT Hx HEENT Problems: No - RENAL Hx Chronic Kidney Disease: No - ENDOCRINE/METABOLIC Hx Endocrine Disorders: No - HEMATOLOGICAL/ONCOLOGICAL Hx Blood Disorders: No - INTEGUMENTARY Hx Dermatological Problems: No - MUSCULOSKELETAL/RHEUMATOLOGICAL Hx Musculoskeletal Disorders: No - GASTROINTESTINAL Hx Gastrointestinal Disorders: No - GENITOURINARY/GYNECOLOGICAL Hx Genitourinary Disorders: No - PSYCHIATRIC Hx Psychophysiologic Disorder: No Hx Depression: No Hx Emotional Abuse: No Hx Physical Abuse: No Hx Substance Use: No - SURGICAL HISTORY Hx Surgeries: No - ANESTHESIA Hx Anesthesia: No Meds Allergies/Adverse Reactions: Allergies Allergy/AdvReac Type Severity Reaction Status Date / Time No Known Allergies Allergy Verified 11/15/17 15:09 - Medications Medications: Current Medications Sodium Chloride (Sodium Chloride 0.9%) 1,000 mls @ 100 mls/hr IV .Q10H SERAFIN Last Admin: 11/15/17 15:51 Dose: 100 mls/hr Physical Exam - Constitutional Appears: Well, Non-toxic, No Acute Distress - Head Exam Head Exam: ATRAUMATIC, NORMAL INSPECTION, NORMOCEPHALIC - Eye Exam Eye Exam: EOMI, Normal appearance - ENT Exam ENT Exam: Mucous Membranes Moist - Respiratory Exam Respiratory Exam: NORMAL BREATHING PATTERN. absent: Accessory Muscle Use, Respiratory Distress - Cardiovascular Exam Cardiovascular Exam: absent: JVD - GI/Abdominal Exam GI & Abdominal Exam: Soft. absent: Distended, Guarding, Rebound, Rigid Additional comments: Tenderness to deep palpation right lower quadrant. No rebound. No guarding. - Extremities Exam Extremities exam: Positive for: normal inspection. Negative for: calf tenderness - Back Exam Back exam: NORMAL INSPECTION - Neurological Exam Neurological exam: Alert, Oriented x3 - Psychiatric Exam Psychiatric exam: Normal Affect, Normal Mood - Skin Skin Exam: Dry, Intact, Normal Color, Warm Results - Vital Signs Recent Vital Signs: Last Vital Signs Temp 98.7 F 11/15/17 15:09 Pulse 88 11/15/17 23:00 Resp 18 11/15/17 23:00 BP 118/82 11/15/17 23:00 Pulse Ox 100 11/15/17 23:00 - Labs Result Diagrams: 11/15/17 15:45 11/15/17 15:45 Labs: Laboratory Results - last 24 hr 11/15/17 11/15/17 11/15/17 15:45 15:45 15:45 WBC 7.9 RBC 4.59 Hgb 13.9 L Hct 41.9 L MCV 91.3 MCH 30.3 MCHC 33.2 RDW 13.7 Plt Count 180 MPV 8.9 Gran % 51.7 Lymph % (Auto) 37.5 H [place] % (Auto) 9.7 H Eos % (Auto) 0.8 L Baso % (Auto) 0.3 Gran # 4.07 Lymph # (Auto) 3.0 [place] # (Auto) 0.8 H Eos # (Auto) 0.1 Baso # (Auto) 0.02 PT 12.5 INR 1.09 H APTT 31.0 Sodium 142 Potassium 4.3 Chloride 106 Carbon Dioxide 30 Anion Gap 11 BUN 9 Creatinine 0.9 Est GFR ( Amer) > 60 Est GFR (Non-Af Amer) > 60 Random Glucose 95 Calcium 9.3 Total Bilirubin 0.9 AST 42 ALT 46 Alkaline Phosphatase 71 Total Protein 7.6 Albumin 4.0 Globulin 3.6 Albumin/Globulin Ratio 1.1 Urine Color Urine Appearance Urine pH Ur Specific [place] Urine Protein Urine Glucose (UA) Urine Ketones Urine Blood Urine Nitrate Urine Bilirubin Urine Urobilinogen Ur Leukocyte Esterase 11/15/17 17:21 WBC RBC Hgb Hct MCV MCH MCHC RDW Plt Count MPV Gran % Lymph % (Auto) [place] % (Auto) Eos % (Auto) Baso % (Auto) Gran # Lymph # (Auto) [place] # (Auto) Eos # (Auto) Baso # (Auto) PT INR APTT Sodium Potassium Chloride Carbon Dioxide Anion Gap BUN Creatinine Est GFR ( Amer) Est GFR (Non-Af Amer) Random Glucose Calcium Total Bilirubin AST ALT Alkaline Phosphatase Total Protein Albumin Globulin Albumin/Globulin Ratio Urine Color Yellow Urine Appearance Clear Urine pH 8.5 Ur Specific [place] 1.015 Urine Protein Negative Urine Glucose (UA) Negative Urine Ketones Negative Urine Blood Negative Urine Nitrate Negative Urine Bilirubin Negative Urine Urobilinogen 0.2 Ur Leukocyte Esterase Negative Assessment & Plan - Assessment and Plan (Free Text) Assessment: 41yo M with epiploic appendagitis of ascending colon - CT Abd/Pelvis noted Plan: - Discussed plan with patient at length. He was offered admission for observation, however, he states that he feels comfortable being discharged and states that he would return if his symptoms do not improve or worsen. He agrees to follow up with Dr. Moe in office. - Ibuprofen 600mg PO q8 hours for 4-6 days - Follow up with Dr. Moe in office. Call for appointment - Return to the ER with any concerning or worsening symptoms
[2017-11-16 02:01] VITALS: BP 117/85; PULSE 80; O2SAT 98
== END 2017-11-16 01:50 | disposition home or self-care (01) ==
LOC: ED 14:51
DX: R10.9 Unspecified abdominal pain (principal); I10 Essential (primary) hypertension
CPT/HCPCS: 74177; 80053; 81003; 85025; 85610; 85730; 96374; 99284; J1885; J7040; Q9967